=== PATIENT | male | born 1980 | race Caucasian/White ===

== ENCOUNTER 2020-03-02 08:28 | Emergency (ER) | payer OTHER ==
[~2020-03-02] VITALS: Ht 175.3 cm; Wt 82.0 kg
[2020-03-02 08:40] VITALS: BP 138/75
[2020-03-02] MEDS ORDERED: LIDOCAINE 2% PF 5 ML VIAL. INJ ONE (09:00)
[2020-03-02] MEDS ORDERED: NAPR-682 PO (10:18)
--- NOTE | 2020-03-02 10:18 | ED.ADGEN ---
Past Medical History Past Medical History: Other Additional Past Medical Histor: CARDIOMYOPATHY W/ BIGEMINY Past Surgical History: Other Additional Past Surgical Histo: BILATERAL EYE SURGERY Smoking Status: Current Every Day Smoker Alcohol Use: Occasionally General Adult EDM: Chief Complaint: LACERATION/AVULSION HPI: HPI: Patient is 39-year-old male who presents to the emergency room after cutting his left thumb while working. Denies any other injuries. Last tetanus shot was 2 months ago. Bleeding was controlled prior to arrival. Review of Systems: Review of Systems: Negative other than noted Current Medications: Current Medications Medications (Trade) Dose Ordered Sig/Mitch Start Time Stop Time Status Last Admin Dose Admin Lidocaine HCl (Lidocaine Pf 2% Vial) 5 ml 1X ONCE 03/02/20 09:00 03/02/20 09:01 DC 03/02/20 09:16 5 ML Allergies: Allergies: Allergies Coded Allergies Type Severity Reaction Last Updated Verified atropine Allergy Unknown 03/02/20 Yes Physical Exam: PE: General: Awake, alert, NAD. Well Nourished, well hydrated. Cooperative HEENT: Atraumatic, EOMI, PERRL, airway patent, moist oral mucosa Neck: Supple, trachea midline Respiratory: CTA bilaterally, normal effort, no wheezing/crackles CV: RRR, no murmur, cap refill <2 GI: Soft, nondistended, nontender, no masses MSK: No obvious deformities Skin: Warm, dry, 2 cm laceration to L distal thumb without nail involvement Neuro: A&O x3, speech NL, sensory and motor grossly intact, no focal deficits Psych: Normal affect, normal mood, not suicidal or homicidal Current Patient Data: Vital Signs: Vital Signs Date Time Temp Pulse Resp B/P (MAP) Pulse Ox O2 Delivery O2 Flow Rate FiO2 03/02/20 08:40 98.2 85 16 138/75 (96) 100 Room Air 98.2 EKG: EKG: [] Heart Score: Risk Factors: Risk Factors: DM, Current or recent (<one month) smoker, HTN, HLP, family history of CAD, obesity. Risk Scores: Score 0 - 3: 2.5% MACE over next 6 weeks - Discharge Home Score 4 - 6: 20.3% MACE over next 6 weeks - Admit for Clinical Observation Score 7 - 10: 72.7% MACE over next 6 weeks - Early Invasive Strategies Radiology/Procedures: Radiology/Procedures: [] Course & Med Decision Making: Course & Med Decision Making Pertinent Labs and Imaging studies reviewed. (See chart for details) Laceration to the thumb. Bleeding controlled. Intact sensation and range of motion. No bone involvement. Tetanus up-to-date. Laceration repaired with absorbable sutures. No complications. Patient's test results and vitals while in the ED were fully reviewed and discussed with the patient. Patient is stable and at this time does not need admission to the hospital. We have discussed strict return precautions and the importance of following up with their Primary Care Physician. Patient stated understanding and was given an opportunity to ask any questions. Patient is in agreement with plan. Dragon Disclaimer: Dragon Disclaimer: This electronic medical record was generated, in whole or in part, using a voice recognition dictation system. PROCEDURE Procedure Laceration Repair Performed by: Teresa Stanton MD Consent: obtained verbally from patient. Risks and benefits were discussed prior to consent Time out performed prior to procedure Location: Left thumb Length: 2 cm Foreign bodies: No foreign bodies Tendon involvement: none Neurovascularly intact Local anesthetic: lidocaine with epinephrine Anesthetic total: 3 mils Patient sedated: no Preparation: Patient was prepped and draped in usual sterile fashion. Wound was cleaned extensively with water Amount of clean: Standard Deep stitches: no Skin closure: 5-0 gut Number of sutures: 4 Technique: simple interrupted Approximation: closed Approximation difficulty: Simple Patient tolerated procedure well Departure Departure Impression: Primary Impression: Laceration of thumb Disposition: 01 DC HOME SELF CARE/HOMELESS Condition: STABLE Referrals: NO PCP (PCP) Patient Instructions: Fingertip Laceration, Laceration Care, Adult Scripts Naproxen Sodium (ANAPROX DS) 550 Mg Tablet 1 TAB PO BID for 5 Days, #10 TAB 0 Refills Prov: TERESA STANTON MD 03/02/20 TERESA STANTON MD Mar 02, 2020 10:18
== END 2020-03-02 10:32 | disposition home or self-care (01) ==
LOC: ER 08:28
DX: S61.012A Laceration without foreign body of left thumb without damage to nail, initial encounter (principal); F17.200 Nicotine dependence, unspecified, uncomplicated; Z88.8 Allergy status to other drugs, medicaments and biological substances; W27.2XXA Contact with scissors, initial encounter; Y93.89 Activity, other specified; Y92.69 Other specified industrial and construction area as the place of occurrence of the external cause; Y99.0 Civilian activity done for income or pay
CPT/HCPCS: 12001; 99282